=== PATIENT | female | born 1950 | race Caucasian/White ===

== ENCOUNTER 2016-12-27 16:07 | Inpatient (IN) | payer MEDICARE, MEDICAID ==
[~2016-12-27] VITALS: Ht 162.6 cm; Wt 104.3 kg
[~2016-12-27 16:07] MED LIST: BENA20TA2 PO; HYDR100T27 PO
--- NOTE | 2016-12-27 20:15 | NUR ---
NEW ADMISSION. Patient arrived and admitted to Rehab unit @ 2014 via [facility]. Patient is alert and verbally responsive. Able to make needs known. Patient on O2 2L via NC. No SOB. Patient denies any pain and discomfort at this time. No acute distress. Lung sounds auscultated bilaterally and are clear. Patient noted with discoloration on right lower extremity. No edema noted on lower extremities. Pedal pulses are palpable. Bowel sounds active in all four quadrants. No distention noted. Patient noted with IV site on left antecubital. No s/s of bleeding noted. No redness or infiltration. Clean and intact. Patient is continent. All needs attended to promptly. Call light within reach. Will continue to monitor. Addendum: 12/28/16 at 0111 by MAR CASTREJON RN 12/27/16 @ 2014 :Patient arrived from [facility] Addendum: 12/28/16 at 0427 by MAR CASTREJON RN 12/27/16 @ 2029: Called family and left message that patient has arrived in facility
--- NOTE | 2016-12-27 20:45 | NUR ---
Spoke with contract negotiation specialist , Dr. Tamez and made aware that new admission has arrived to Acute Rehab unit. Went over patient's current medication list from [facility] and per Riky ROMAN to continue all medications and will f/u with patient in AM.
[2016-12-27] MEDS ORDERED: BLOOD SUGAR DIAGNOSTIC 1 EACH STRIP VI SCH (21:00)
[2016-12-27] MEDS ORDERED: BLOO-360 IN (22:00)
[2016-12-27] MEDS ORDERED: ATOR40TA PO (22:00)
[2016-12-27] MEDS ORDERED: TRAM50TA PO (22:00)
[2016-12-27] MEDS ORDERED: INSU100V28 SQ (22:00)
[2016-12-27] MEDS ORDERED: INSU100I19 SQ (22:00)
[2016-12-27] MEDS ORDERED: GABA-534 PO (22:00)
[2016-12-27] MEDS ORDERED: ATORVASTATIN 40 MG TABLET PO SCH (22:15)
[2016-12-27] MEDS ORDERED: DEXTROSE 50% 50 ML DISP.SYRIN IV PRN (22:15)
[2016-12-27] MEDS: GABAPENTIN 300 MG CAPSULE PO SCH (22:44)
[2016-12-27] MEDS ORDERED: ATORVASTATIN 40 MG TABLET ONE (22:45)
[2016-12-27] MEDS ORDERED: GABAPENTIN 300 MG CAPSULE ONE (22:46)
[2016-12-27] MEDS: BLOOD SUGAR DIAGNOSTIC 1 EACH STRIP VI SCH (23:21)
--- NOTE | 2016-12-27 23:21 | NUR ---
Accu-Chek done. Patient with BS of 173. With orders for Regular Insulin per [facility] sliding scale. Per patient, verbalizes that she does not take any regular insulin and has not been taking it for awhile. Patient verbalizes that she only receives Levemir 15 units. Made patient aware that she has Regular Insulin ordered on top of the Levemir she is to receive she strongly verbalized that she does not take it and has not been. Levemir 15 unit given to patient as ordered. Will notify MD regarding patients med and will endorse to AM shift. Patient also with IV heplock on left antecubital, verbalize she wanted it taken out. Removed IV. No complications noted. Pressure applied. Tolerated well. No s/s of bleeding. Patient has no IV medications at this time. All needs attended to promptly. Call light within reach. Will continue to monitor.
[2016-12-27] MEDS: INSULIN DETEMIR 300 UNIT/3 ML CARTRIDGE SQ SCH (23:28)
[2016-12-27] MEDS ORDERED: INSULIN DETEMIR 300 UNIT/3 ML CARTRIDGE SQ ONE (23:32)
[2016-12-27] MEDS: INSULIN REGULAR, HUMAN 300 UNIT/3 ML VIAL SQ PRN (23:33)
[2016-12-28] MEDS ORDERED: APIX5TAB PO (04:00)
[2016-12-28] MEDS ORDERED: ASPI81TA31 PO (04:01)
[2016-12-28] MEDS ORDERED: BENA10TA2 PO (04:01)
[2016-12-28] MEDS ORDERED: CARV25TA PO (04:01)
[2016-12-28] MEDS ORDERED: DILT120T14 PO (04:01)
[2016-12-28] MEDS ORDERED: VENL150C2 PO (04:01)
[2016-12-28] MEDS ORDERED: MECL-102 PO (04:01)
[2016-12-28] MEDS ORDERED: GLIP10TA11 PO (04:01)
[2016-12-28] MEDS ORDERED: PANT40TA4 PO (04:01)
[2016-12-28] MEDS ORDERED: SULF1TAB48 PO (04:01)
[2016-12-28] MEDS ORDERED: HYDR-4076 PO (04:01)
[2016-12-28] MEDS ORDERED: FURO-152 PO (04:01)
[2016-12-28] MEDS ORDERED: MAGN400C PO (04:01)
[2016-12-28] MEDS: BLOOD SUGAR DIAGNOSTIC 1 EACH STRIP VI SCH ×4 (06:58→21:05)
--- NOTE | 2016-12-28 07:02 | NUR ---
Patient is awake and verbally responsive. Slept throughout the night. Denies any pain and discomfort at this time. No acute distress. No SOB. On O2 2L via NC at this time. Kept clean and dry. BS is 87. No insulin coverage needed. Will endorse to AM Shift. All needs attended to promptly. Call light within reach. Will continue to monitor.
--- NOTE | 2016-12-28 07:21 | NUR ---
Patient received from shift commander, resting comfortably in bed. No signs of acute distress noted, respirations even and unlabored. O2 sat WNL on RA, VS WNL. No other verbalized needs at this time. Safety and fall precautions maintained, call light within reach.
[2016-12-28 08:06] VITALS: BP 109/56
[2016-12-28] MEDS: TRAMADOL HCL 50 MG TABLET PO PRN ×2 (08:50→22:28)
[2016-12-28] MEDS: INSULIN REGULAR, HUMAN 300 UNIT/3 ML VIAL SQ PRN ×2 (13:09→17:54)
[2016-12-28 20:00] VITALS: BP 125/63
[2016-12-28] MEDS: ATORVASTATIN 40 MG TABLET PO SCH (20:26)
[2016-12-28] MEDS: GABAPENTIN 300 MG CAPSULE PO SCH (20:26)
[2016-12-28] MEDS: INSULIN DETEMIR 300 UNIT/3 ML CARTRIDGE SQ SCH (20:53)
[2016-12-28] MEDS ORDERED: OXYCODONE/APAP 5-325 MG TABLET PO PRN ×2 (23:15)
[2016-12-28] MEDS ORDERED: OXYCODONE/APAP 5-325 MG TABLET ONE (23:40)
[2016-12-29 06:49] LABS: BASOPHILS % (AUTO) 0.4 % (0.0-2.0); EOSINOPHILS # (AUTO) 0.1 K/uL (0.0-0.7); EOSINOPHILS % (AUTO) 1.3 % (0.0-7.0); HEMATOCRIT 31.5 % (37-47); LYMPHOCYTES # (AUTO) 1.3 K/UL (0.8-4.8); MEAN CORPUSCULAR HEMOGLOBIN 26.8 UUG (27.0-31.0); MEAN CORPUSCULAR HGB CONC 32 g/dL (32.0-37.0); MEAN CORPUSCULAR VOLUME 84.4 FL (81.0-99.0); MONOCYTES # (AUTO) 0.9 K/UL (0.1-1.30); MONOCYTES % (AUTO) 8.8 % (0.0-11.0); NEUTROPHILS # (AUTO) 8.4 K/UL (1.8-8.9); NEUTROPHILS % (AUTO) 77.5 % (38.5-71.5); PLATELET COUNT (AUTO) 195 K/UL (150-450); RED BLOOD CELL COUNT(AUTO) 3.73 MIL/UL (4.2-5.4); WHITE BLOOD COUNT (AUTO) 10.7 K/UL (4.0-11.2)
[2016-12-29 07:18] LABS: MAGNESIUM 2.4 mg/dL (1.8-2.4); PHOSPHOROUS 5.1 mg/dL (2.5-4.9); POTASSIUM 4.7 mmol/L (3.5-5.1)
[2016-12-29 07:28] LABS: CREATININE 1.4 mg/dL (0.6-1.3)
--- NOTE | 2016-12-29 07:45 | NUR ---
Received patient awake, up in bed, watching TV, verbally responsive, coherent, afebrile, not in any form of acute distress. She denies any pain or discomfort at this time. Environmental check for safety done. Call light placed within reach.
--- NOTE | 2016-12-29 07:59 | NUR ---
Patient awake in bed with no s/s of distress. No complaints of pain at this time. Tramadol given as ordered at 2230 with little relief. 2 tabs of Percocet administered as ordered at 2330. Patient slept well throughout the night afterwards. Kept clean and comfortable. Safety measures observed. Call light kept within reach. Frequent checks done. Endorsed accordingly.
[2016-12-29] MEDS: BLOOD SUGAR DIAGNOSTIC 1 EACH STRIP VI SCH ×4 (08:24→21:34)
[2016-12-29 08:29] VITALS: BP 109/61
--- NOTE | 2016-12-29 11:40 | NUR ---
Blood sugar checked 292 but patient refused to get her regular insulin per sliding scale despite explanation of benefits and risks. Patient remains alert, verbally responsive, coherent, afebrile, not in any form of acute distress. She denies any pain or discomfort at this time. Will continue to monitor.
[2016-12-29] MEDS: hydrALAZINE HCL 25 MG TABLET PO SCH ×2 (14:00→23:05)
[2016-12-29] MEDS ORDERED: MECLIZINE HCL 25 MG TABLET PO PRN (14:00)
[2016-12-29] MEDS ORDERED: INSULIN REGULAR, HUMAN 300 UNIT/3 ML VIAL SQ PRN (14:00)
[2016-12-29] MEDS ORDERED: TRAMADOL HCL 50 MG TABLET PO PRN (14:00)
[2016-12-29] MEDS: SULFAMETH/TRIMETH 800/160 MG TABLET PO SCH ×2 (15:51→21:21)
[2016-12-29] MEDS ORDERED: BLOOD SUGAR DIAGNOSTIC 1 EACH STRIP VI SCH (16:30)
[2016-12-29] MEDS: glipiZIDE 10 MG TABLET PO SCH (17:36)
[2016-12-29] MEDS: CARVEDILOL 25 MG TABLET PO SCH (17:38)
[2016-12-29] MEDS: INSULIN REGULAR, HUMAN 300 UNIT/3 ML VIAL SQ PRN ×2 (17:41→23:07)
[2016-12-29] MEDS: FUROSEMIDE 20 MG TABLET PO SCH (17:41)
[2016-12-29] MEDS: APIXABAN 5 MG TABLET PO SCH (17:41)
[2016-12-29] MEDS: MAGNESIUM OXIDE 400 MG TABLET PO SCH (17:42)
--- NOTE | 2016-12-29 19:20 | NUR ---
Received patient sitting up in bed. Alert and verbally responsive. Able to make needs known. Denies any pain and discomfort at this time. No acute distress. No SOB. On O2 2L via NC. Tolerating well. Discoloration still noted on right lower extremity. Handled gently. Kept clean and dry. All needs attended to promptly. Call light within reach. Will continue to monitor.
[2016-12-29 20:00] VITALS: BP 120/63
[2016-12-29] MEDS ORDERED: GABAPENTIN 300 MG CAPSULE PO SCH (21:00)
[2016-12-29] MEDS ORDERED: ATORVASTATIN 40 MG TABLET PO SCH (21:00)
[2016-12-29] MEDS ORDERED: INSULIN DETEMIR 300 UNIT/3 ML CARTRIDGE SQ SCH (21:00)
[2016-12-29] MEDS: ATORVASTATIN 40 MG TABLET PO SCH (21:20)
[2016-12-29] MEDS: GABAPENTIN 300 MG CAPSULE PO SCH (21:21)
[2016-12-29] MEDS: INSULIN DETEMIR 300 UNIT/3 ML CARTRIDGE SQ SCH (21:32)
--- NOTE | 2016-12-29 21:34 | NUR ---
Accu-check done. Blood sugar is 281, but patient refused regular insulin. Explained risks and benefits, but patient still refused. Patient has Levemir 15 units ordered Q HS and verbalized she only wanted to take her Levemir. Medication given as ordered. Patient in no acute distress at this time. no s/s of hyperglycemia noted. All needs attended to promptly. Call light within reach. Will continue to monitor.
--- NOTE | 2016-12-29 22:05 | NUR ---
Dr. Reardon in facility and evaluated patient for Cardiac consult. No new orders noted at this time.
[2016-12-29] MEDS ORDERED: HYDROCODONE/APAP 5-325MG TABLET PO PRN ×2 (23:30)
[2016-12-30] MEDS: hydrALAZINE HCL 25 MG TABLET PO SCH ×3 (06:14→22:00)
[2016-12-30] MEDS: PANTOPRAZOLE SODIUM 40 MG TABLET.DR PO SCH (06:14)
[2016-12-30] MEDS: BLOOD SUGAR DIAGNOSTIC 1 EACH STRIP VI SCH ×4 (06:22→21:19)
--- NOTE | 2016-12-30 06:22 | NUR ---
Patient is awake and verbally responsive. Slept comfortably throughout the night. Denies any pain and discomfort. No acute distress. No SOB. BS checked 100. No insulin coverage needed. 7am medications given. All needs attended to promptly. Call light within reach. Will continue to monitor.
--- NOTE | 2016-12-30 07:30 | NUR ---
Received patient awake in bed, alert, verbally responsive, able to make needs known, not in any form of acute distress. She denies any pain or discomfort at this time. Environmental safety check done. Call light placed within reach.
[2016-12-30] MEDS: CARVEDILOL 25 MG TABLET PO SCH ×2 (08:00→17:38)
[2016-12-30 08:18] LABS: CREATININE 1.2 mg/dL (0.6-1.3); MAGNESIUM 2.5 mg/dL (1.8-2.4); POTASSIUM 4.9 mmol/L (3.5-5.1)
[2016-12-30] MEDS: glipiZIDE 10 MG TABLET PO SCH ×2 (08:33→17:14)
[2016-12-30] MEDS: SULFAMETH/TRIMETH 800/160 MG TABLET PO SCH ×2 (08:34→21:18)
[2016-12-30] MEDS: VENLAFAXINE XR 75 MG CAP.SR.24H PO SCH (08:34)
[2016-12-30] MEDS: FUROSEMIDE 20 MG TABLET PO SCH ×2 (08:35→17:15)
[2016-12-30] MEDS: MAGNESIUM OXIDE 400 MG TABLET PO SCH ×2 (08:35→17:15)
[2016-12-30] MEDS: ASPIRIN 81 MG TAB.CHEW PO SCH (08:40)
[2016-12-30] MEDS: APIXABAN 5 MG TABLET PO SCH ×2 (08:42→17:17)
[2016-12-30] MEDS ORDERED: BENAZEPRIL HCL 10 MG TABLET PO SCH (09:00)
[2016-12-30] MEDS ORDERED: VENLAFAXINE XR 150 MG CAP.SR.24H PO SCH (09:00)
[2016-12-30] MEDS: DILTIAZEM HCL CD 120 MG CAP.SR.24H PO SCH (09:00)
[2016-12-30 10:51] VITALS: BP 102/60
[2016-12-30] MEDS: INSULIN REGULAR, HUMAN 300 UNIT/3 ML VIAL SQ PRN ×3 (12:06→21:44)
--- NOTE | 2016-12-30 16:11 | NUR ---
Gmat Instructor: SW met with pt at bedside to assess needs and provided support. Per pt, she was admitted due to congestive heart failure. Pt did appear depressed when discussing her medical hx. Per pt, she is experiencing some family related stressors, such as having to plan to move to another place. Per pt, she lives with her son however she will need to move out "eventually." Pt reported she lost her home in 2008 and stopped working that year. She reported she is unable to ambulate and is in need of assistance when returning home. Per pt, she has applied for [employer] and is waiting for a response. Additionally, pt reported she applied for [employer] housing as well. SW provided supportive counseling and emotional support. SW will provide community resources and heart disease support group referrals. SW will continue to remain available as needed.
[2016-12-30 20:27] VITALS: BP 128/61
[2016-12-30] MEDS: GABAPENTIN 300 MG CAPSULE PO SCH (21:18)
[2016-12-30] MEDS: INSULIN DETEMIR 300 UNIT/3 ML CARTRIDGE SQ SCH (21:24)
[2016-12-30] MEDS: ATORVASTATIN 40 MG TABLET PO SCH (21:31)
[2016-12-30] MEDS ORDERED: ATORVASTATIN 20 MG TABLET ONE (21:38)
--- NOTE | 2016-12-30 22:14 | NUR ---
Patient had lipitor 40mg due at 2100, medication not available in [facility], medication override was done and 2 tabs for lipitor 20mg were taken and administered for a total dose of 40mg as ordered Addendum: 12/30/16 at 2220 by KENTRELL WASHINGTON RN Also blood sugar was checked with reading at 193, patient refused to get coverage for sliding scale. Stated " My sugar will drop too much because I already had my medication", explained the importance of having controlled glucose levels but the patient still refused.
[2016-12-31] MEDS: glipiZIDE 10 MG TABLET PO SCH ×2 (06:38→17:30)
[2016-12-31] MEDS: PANTOPRAZOLE SODIUM 40 MG TABLET.DR PO SCH (06:38)
[2016-12-31] MEDS: hydrALAZINE HCL 25 MG TABLET PO SCH ×3 (06:38→21:17)
[2016-12-31] MEDS: BLOOD SUGAR DIAGNOSTIC 1 EACH STRIP VI SCH ×4 (06:40→21:18)
--- NOTE | 2016-12-31 06:43 | NUR ---
Patient slept well throughout the night, had no episodes of pain or discomfort. No respiratory distress noted. Patient has call light within reach, will continue to monitor
--- NOTE | 2016-12-31 07:30 | NUR ---
RECEIVED PATIENT IN BED AWAKE ALERT AND ORIENTED DENIES PAIN OR DISCOMFORTS AT THIS TIME.REMAIN ON O2 AT 2L/M BY NASAL CANULA WITH NO SHORTNESS OF BREATH AT THIS TIME.NO S/S OF HYPO/HYPERGLYCEMIC REACTIONS AT THIS TIME.CALL LIGHT IS WITHIN EASY REACH MADE COMFORTABLE AND WILL OBSERVE.
[2016-12-31 08:52] VITALS: BP 129/62
[2016-12-31] MEDS: SULFAMETH/TRIMETH 800/160 MG TABLET PO SCH ×2 (09:15→21:18)
[2016-12-31] MEDS: MAGNESIUM OXIDE 400 MG TABLET PO SCH ×2 (09:16→17:30)
[2016-12-31] MEDS: ASPIRIN 81 MG TAB.CHEW PO SCH (09:16)
[2016-12-31] MEDS: FUROSEMIDE 20 MG TABLET PO SCH ×2 (09:16→17:30)
[2016-12-31] MEDS: CARVEDILOL 25 MG TABLET PO SCH ×2 (09:16→17:31)
[2016-12-31] MEDS: VENLAFAXINE XR 75 MG CAP.SR.24H PO SCH (09:16)
[2016-12-31] MEDS: DILTIAZEM HCL CD 120 MG CAP.SR.24H PO SCH (09:17)
[2016-12-31] MEDS: APIXABAN 5 MG TABLET PO SCH ×2 (09:18→17:30)
[2016-12-31] MEDS: INSULIN REGULAR, HUMAN 300 UNIT/3 ML VIAL SQ PRN ×2 (12:21→17:36)
--- NOTE | 2016-12-31 14:13 | NUR ---
IDT MEETING 12/31/16
[2016-12-31 16:19] VITALS: BP 113/69
--- NOTE | 2016-12-31 18:00 | NUR ---
PATIENT IS 96% ON ROOM AIR O2 WILL BE USED ON A PRN BASIS AT THIS TIME.
[2016-12-31 20:02] VITALS: BP 112/52
[2016-12-31] MEDS: GABAPENTIN 300 MG CAPSULE PO SCH (21:17)
[2016-12-31] MEDS: INSULIN DETEMIR 300 UNIT/3 ML CARTRIDGE SQ SCH (21:19)
[2016-12-31] MEDS: ATORVASTATIN 40 MG TABLET PO SCH (21:21)
--- NOTE | 2016-12-31 21:30 | NUR ---
Patient alert and oriented and verbally able to let needs known. Patient refused sliding scale coverage for the HS dose. Did ok the long acting insulin. Also 2 20 mg doses of Lipitor were taken out of the pyxis because the 40 mg dose is out .
[2016-12-31] MEDS ORDERED: ATORVASTATIN 20 MG TABLET ONE (21:32)
[2017-01-01] MEDS: hydrALAZINE HCL 25 MG TABLET PO SCH ×3 (06:00→21:12)
[2017-01-01] MEDS: BLOOD SUGAR DIAGNOSTIC 1 EACH STRIP VI SCH ×4 (06:27→21:01)
[2017-01-01] MEDS: PANTOPRAZOLE SODIUM 40 MG TABLET.DR PO SCH (06:33)
--- NOTE | 2017-01-01 06:37 | NUR ---
Patient alert and oriented and verbally able to let needs known. Slept well throughout the night, had no complains of pain or discomfort, no signs of SOB pulse o2 >90% on room air throughout the night. B/P meds not given due to SBP reading 112/43. Patient also prefers to take glucatrol later on when she has her food tray since her blood sugar reading this morning was 75. Will relay to the morning nurse. Patient does have call light within reach, all needs attended to.
--- NOTE | 2017-01-01 07:20 | NUR ---
Patient received from night court magistrate, resting comfortably in bed. No signs of acute distress noted, respirations even and unlabored. VS WNL, no complaints of pain, no other verbalized needs at this time. Safety precautions and fall precautions maintained, call light within reach.
[2017-01-01 08:00] VITALS: BP 116/66
[2017-01-01] MEDS: DILTIAZEM HCL CD 120 MG CAP.SR.24H PO SCH (09:05)
[2017-01-01] MEDS: ASPIRIN 81 MG TAB.CHEW PO SCH (09:06)
[2017-01-01] MEDS: CARVEDILOL 25 MG TABLET PO SCH ×2 (09:06→17:47)
[2017-01-01] MEDS: SULFAMETH/TRIMETH 800/160 MG TABLET PO SCH ×2 (09:07→21:04)
[2017-01-01] MEDS: MAGNESIUM OXIDE 400 MG TABLET PO SCH ×2 (09:07→17:42)
[2017-01-01] MEDS: FUROSEMIDE 20 MG TABLET PO SCH ×2 (09:07→17:42)
[2017-01-01] MEDS: glipiZIDE 10 MG TABLET PO SCH ×3 (09:07→17:42)
[2017-01-01] MEDS: VENLAFAXINE XR 75 MG CAP.SR.24H PO SCH (09:09)
[2017-01-01] MEDS: APIXABAN 5 MG TABLET PO SCH ×2 (09:10→17:50)
[2017-01-01] MEDS: INSULIN REGULAR, HUMAN 300 UNIT/3 ML VIAL SQ PRN ×2 (12:21→17:47)
[2017-01-01 20:06] VITALS: BP 128/60
--- NOTE | 2017-01-01 21:00 | NUR ---
NSG: Patient alert and oriented,patient verbally able to needs known. compliant with meds and insulin slyding scale. hs snack given after insulin given.continue plan of care.
[2017-01-01] MEDS: GABAPENTIN 300 MG CAPSULE PO SCH (21:05)
[2017-01-01] MEDS: ATORVASTATIN 40 MG TABLET PO SCH (21:05)
[2017-01-01] MEDS: INSULIN DETEMIR 300 UNIT/3 ML CARTRIDGE SQ SCH (21:08)
[2017-01-02] MEDS: PANTOPRAZOLE SODIUM 40 MG TABLET.DR PO SCH (06:20)
[2017-01-02] MEDS: hydrALAZINE HCL 25 MG TABLET PO SCH ×3 (06:20→21:01)
[2017-01-02 06:53] LABS: BASOPHILS % (AUTO) 0.4 % (0.0-2.0); EOSINOPHILS # (AUTO) 0.4 K/uL (0.0-0.7); EOSINOPHILS % (AUTO) 3.7 % (0.0-7.0); HEMATOCRIT 33.3 % (37-47); HEMOGLOBIN 10.6 G/DL (12.0-16.0); LYMPHOCYTES # (AUTO) 1.3 K/UL (0.8-4.8); LYMPHOCYTES % (AUTO) 13.5 % (20.5-51.5); MEAN CORPUSCULAR HEMOGLOBIN 26.6 UUG (27.0-31.0); MEAN CORPUSCULAR HGB CONC 32 g/dL (32.0-37.0); MONOCYTES # (AUTO) 0.7 K/UL (0.1-1.30); MONOCYTES % (AUTO) 7.4 % (0.0-11.0); NEUTROPHILS # (AUTO) 7.5 K/UL (1.8-8.9); PLATELET COUNT (AUTO) 314 K/UL (150-450); RED BLOOD CELL COUNT(AUTO) 4.01 MIL/UL (4.2-5.4); WHITE BLOOD COUNT (AUTO) 9.9 K/UL (4.0-11.2)
[2017-01-02] MEDS: BLOOD SUGAR DIAGNOSTIC 1 EACH STRIP VI SCH ×4 (06:53→20:48)
--- NOTE | 2017-01-02 07:01 | NUR ---
NSG: Patient remain calm and cooperative with care and meds.Patient slept well through the night, had no episodes of pain or discomfort. No respiratory distress noted. call light within reach, will continue to monitor. continue plan of care.
[2017-01-02 07:22] LABS: THYROID STIMULATING HORMONE 2.16 mIU/mL (0.358-3.740)
[2017-01-02 07:55] LABS: BILIRUBIN,TOTAL 0.3 mg/dL (0.2-1.0); MAGNESIUM 2.1 mg/dL (1.8-2.4); PHOSPHOROUS 4.7 mg/dL (2.5-4.9); POTASSIUM 5.1 mmol/L (3.5-5.1); TOTAL PROTEIN, SERUM 7.3 g/dL (6.4-8.2)
[2017-01-02 07:58] LABS: CREATININE 1.7 mg/dL (0.6-1.3)
[2017-01-02 08:00] VITALS: BP_SYST 114; BP_SYST 138; BP_DIAS 53; BP_DIAS 74
[2017-01-02] MEDS: CARVEDILOL 25 MG TABLET PO SCH ×2 (08:15→17:34)
[2017-01-02] MEDS: glipiZIDE 10 MG TABLET PO SCH ×2 (08:16→17:28)
[2017-01-02] MEDS: MAGNESIUM OXIDE 400 MG TABLET PO SCH ×2 (08:17→17:28)
[2017-01-02] MEDS: FUROSEMIDE 20 MG TABLET PO SCH (08:17)
[2017-01-02] MEDS: ASPIRIN 81 MG TAB.CHEW PO SCH (08:17)
[2017-01-02] MEDS: VENLAFAXINE XR 75 MG CAP.SR.24H PO SCH (08:17)
[2017-01-02] MEDS: SULFAMETH/TRIMETH 800/160 MG TABLET PO SCH ×2 (08:17→20:43)
[2017-01-02] MEDS: DILTIAZEM HCL CD 120 MG CAP.SR.24H PO SCH (08:18)
[2017-01-02] MEDS: APIXABAN 5 MG TABLET PO SCH ×2 (10:48→17:28)
[2017-01-02] MEDS: INSULIN REGULAR, HUMAN 300 UNIT/3 ML VIAL SQ PRN (12:39)
--- NOTE | 2017-01-02 19:30 | NUR ---
Patient resting in her bed with no s/s of distress. Demonstrated a pleasant disposition. Call light within reach. Will continue to monitor.
[2017-01-02 20:25] VITALS: BP 143/61
[2017-01-02] MEDS: ATORVASTATIN 40 MG TABLET PO SCH (20:43)
[2017-01-02] MEDS: GABAPENTIN 300 MG CAPSULE PO SCH (20:43)
[2017-01-02] MEDS: INSULIN DETEMIR 300 UNIT/3 ML CARTRIDGE SQ SCH (20:56)
[2017-01-02] MEDS: diphenhydrAMINE 50 MG CAPSULE PO PRN (22:16)
[2017-01-02] MEDS ORDERED: diphenhydrAMINE 50 MG CAPSULE ONE (22:26)
[2017-01-03] MEDS: hydrALAZINE HCL 25 MG TABLET PO SCH ×3 (06:23→21:07)
[2017-01-03] MEDS: BLOOD SUGAR DIAGNOSTIC 1 EACH STRIP VI SCH ×4 (06:55→22:03)
--- NOTE | 2017-01-03 07:21 | NUR ---
Patient resting on her bed with no s/s of distress. Respirations even and unlabored. Denies pain at this time. Call light kept within reach. Frequent checks done. Due meds given. BS taken this AM: 59. Given orange juice. Rechecked after 15 mins: 77. VS WNL. Kept clean and comfortable. Needs attended. Endorsed accordingly.
--- NOTE | 2017-01-03 07:28 | NUR ---
Regular insulin at HS refused, Levemir HS given as ordered.
[2017-01-03 08:00] VITALS: BP 116/59
--- NOTE | 2017-01-03 08:00 | NUR ---
RECEIVED PATIENT AWAKE IN BED. NO S/S OF DISTRESS NOTED. NO COMPLAINTS OF PAIN OR DISCOMFORT AT THIS TIME. BS RE CHECKED AT 70. OFFERED ORANGE JUICE AND ENCOURAGED TO FINISH BREAKFAST. WILL CONTINUE TO MONITOR
[2017-01-03] MEDS: PANTOPRAZOLE SODIUM 40 MG TABLET.DR PO SCH (08:23)
[2017-01-03] MEDS: DILTIAZEM HCL CD 120 MG CAP.SR.24H PO SCH (08:24)
[2017-01-03] MEDS: SULFAMETH/TRIMETH 800/160 MG TABLET PO SCH ×2 (08:25→20:55)
[2017-01-03] MEDS: CARVEDILOL 25 MG TABLET PO SCH ×2 (08:25→18:00)
[2017-01-03] MEDS: MAGNESIUM OXIDE 400 MG TABLET PO SCH ×2 (08:25→16:58)
[2017-01-03] MEDS: VENLAFAXINE XR 75 MG CAP.SR.24H PO SCH (08:34)
[2017-01-03] MEDS: APIXABAN 5 MG TABLET PO SCH ×2 (08:34→17:19)
[2017-01-03] MEDS: glipiZIDE 10 MG TABLET PO SCH ×2 (08:40→16:58)
[2017-01-03] MEDS: INSULIN REGULAR, HUMAN 300 UNIT/3 ML VIAL SQ PRN ×2 (12:12→17:19)
--- NOTE | 2017-01-03 18:03 | NUR ---
PATIENT TOLERATED OT AND PT WELL. EATING DINNER AT THIS TIME. TOLERATED DIET WELL. NO COMPLAINTS OF PAIN. BP AT 100/52, AZ AT 52. WITHHELD CARVEDILOL.
--- NOTE | 2017-01-03 19:30 | NUR ---
Received patient awake, resting in her bed. Verbalized absence of pain at this time. Respirations even and unlabored. Call light within reach. Will continue to monitor.
[2017-01-03 20:00] VITALS: BP 117/61
[2017-01-03] MEDS: ATORVASTATIN 40 MG TABLET PO SCH (20:55)
[2017-01-03] MEDS: GABAPENTIN 300 MG CAPSULE PO SCH (20:55)
[2017-01-03] MEDS: INSULIN DETEMIR 300 UNIT/3 ML CARTRIDGE SQ SCH (21:07)
[2017-01-03] MEDS: diphenhydrAMINE 50 MG CAPSULE PO PRN (22:04)
--- NOTE | 2017-01-04 03:40 | NUR ---
Patient verbalized not feeling well. Comfort measures given, BP taken: 147/69. Damien crackers and orange juice given as patient reported feeling hungry. Blood sugar checked after 15 minutes. BS 106. Reported feeling "a lot better" after snacks and adjusting room temperature. Encouraged to take small, frequent snacks especially at midnight to maintain BS within normal range. Patient verbalized understanding and agreement. Went back to sleeping soundly immediately after interventions. Will continue to monitor.
[2017-01-04] MEDS: hydrALAZINE HCL 25 MG TABLET PO SCH ×3 (06:24→21:29)
[2017-01-04] MEDS: BLOOD SUGAR DIAGNOSTIC 1 EACH STRIP VI SCH ×4 (06:24→21:28)
[2017-01-04] MEDS: PANTOPRAZOLE SODIUM 40 MG TABLET.DR PO SCH (06:24)
--- NOTE | 2017-01-04 06:30 | NUR ---
BS taken: 121. Reminded to take snacks every 2 hrs to help keep BS stable and within normal range. Patient verbalized understanding. Denies pain or discomfort at this time. Went back to sleep after taking AM meds. Respirations even and unlabored. Due meds given. Frequent checks done. Needs attended. Kept clean and comfortable. Supervised during ambulation. Endorsed accordingly.
[2017-01-04 06:55] LABS: BASOPHILS % (AUTO) 0.4 % (0.0-2.0); EOSINOPHILS # (AUTO) 0.4 K/uL (0.0-0.7); EOSINOPHILS % (AUTO) 3.6 % (0.0-7.0); HEMATOCRIT 33.2 % (37-47); HEMOGLOBIN 10.6 G/DL (12.0-16.0); LYMPHOCYTES # (AUTO) 1.2 K/UL (0.8-4.8); LYMPHOCYTES % (AUTO) 11.8 % (20.5-51.5); MEAN CORPUSCULAR HEMOGLOBIN 26.7 UUG (27.0-31.0); MEAN CORPUSCULAR HGB CONC 32 g/dL (32.0-37.0); MEAN CORPUSCULAR VOLUME 83.5 FL (81.0-99.0); MONOCYTES # (AUTO) 0.7 K/UL (0.1-1.30); MONOCYTES % (AUTO) 6.7 % (0.0-11.0); NEUTROPHILS # (AUTO) 8.2 K/UL (1.8-8.9); NEUTROPHILS % (AUTO) 77.5 % (38.5-71.5); PLATELET COUNT (AUTO) 303 K/UL (150-450); RED BLOOD CELL COUNT(AUTO) 3.98 MIL/UL (4.2-5.4); WHITE BLOOD COUNT (AUTO) 10.5 K/UL (4.0-11.2)
[2017-01-04 07:11] LABS: BILIRUBIN,TOTAL 0.4 mg/dL (0.2-1.0); MAGNESIUM 2.1 mg/dL (1.8-2.4); POTASSIUM 5.4 mmol/L (3.5-5.1); TOTAL PROTEIN, SERUM 7.1 g/dL (6.4-8.2)
[2017-01-04 07:15] LABS: CREATININE 1.8 mg/dL (0.6-1.3)
[2017-01-04] MEDS: glipiZIDE 10 MG TABLET PO SCH ×2 (08:08→17:05)
[2017-01-04] MEDS: CARVEDILOL 25 MG TABLET PO SCH ×2 (08:09→17:08)
[2017-01-04] MEDS: SULFAMETH/TRIMETH 800/160 MG TABLET PO SCH ×2 (08:10→21:24)
[2017-01-04] MEDS: APIXABAN 5 MG TABLET PO SCH ×2 (08:12→17:07)
[2017-01-04] MEDS: MAGNESIUM OXIDE 400 MG TABLET PO SCH ×2 (08:12→17:07)
[2017-01-04] MEDS: VENLAFAXINE XR 75 MG CAP.SR.24H PO SCH (08:12)
[2017-01-04] MEDS: DILTIAZEM HCL CD 120 MG CAP.SR.24H PO SCH (08:12)
--- NOTE | 2017-01-04 08:25 | NUR ---
RECEIVED PATIENT AWAKE IN BED. NO COMPLAINTS OF PAIN OR DISCOMFORT AT THIS TIME. NO S/S OF DISTRESS. CALL LIGHT WITHIN REACH. SUPERVISED AMBULATION. ENSURED SAFETY
[2017-01-04] MEDS: INSULIN REGULAR, HUMAN 300 UNIT/3 ML VIAL SQ PRN (12:29)
--- NOTE | 2017-01-04 14:00 | NUR ---
BP AT 100/8. AL AT 62. WITHHELD HYDRALAZINE. NO S/S OF DISTRESS. NO COMPLAINTS OF DIZZINESS OR OTHER DISCOMFORTS. PATIENT SITTING AT CHAIR COMFORTABLY. ATTENDED TO NEEDS PROMPTLY. O2 SAT AT 95%. REFUSED O2 AT THIS TIME.
[2017-01-04 20:41] VITALS: BP 129/64
[2017-01-04] MEDS: GABAPENTIN 300 MG CAPSULE PO SCH (21:24)
[2017-01-04] MEDS: ATORVASTATIN 40 MG TABLET PO SCH (21:24)
[2017-01-04] MEDS: INSULIN DETEMIR 300 UNIT/3 ML CARTRIDGE SQ SCH (21:32)
--- NOTE | 2017-01-05 05:03 | NUR ---
Went in for hourly rounds and patient was awake and alert, asked me to check blood surgar levels because she was sweaty and and didn't feel right. Blood sugar was checked with readings at 57. Rozel juice was given and onesimollo. Will recheck blood sugar in 15-30 mins. Patient does have call light within reach, will continue to monitor.
--- NOTE | 2017-01-05 05:33 | NUR ---
Patient's blood sugar was rechecked with readings at 128, she is alert and oriented and states that she's beginning to feel better, I informed her that her blood sugar would still be rechecked at 0630 as scheduled.
[2017-01-05] MEDS: PANTOPRAZOLE SODIUM 40 MG TABLET.DR PO SCH (06:36)
[2017-01-05] MEDS: hydrALAZINE HCL 25 MG TABLET PO SCH ×3 (06:36→21:03)
[2017-01-05] MEDS: BLOOD SUGAR DIAGNOSTIC 1 EACH STRIP VI SCH ×4 (06:38→21:03)
--- NOTE | 2017-01-05 07:15 | NUR ---
Patient's blood sugar rechecked with readings at 110, patient is alert and oriented and verbally able to let needs known. Denies any pain or discomfort at this time, has call light within reach, all needs attended to.
[2017-01-05 07:18] VITALS: BP 126/61
[2017-01-05 07:35] LABS: BASOPHILS # (AUTO) 0.1 K/uL (0.0-8.0); BASOPHILS % (AUTO) 0.5 % (0.0-2.0); EOSINOPHILS # (AUTO) 0.5 K/uL (0.0-0.7); EOSINOPHILS % (AUTO) 4.4 % (0.0-7.0); HEMATOCRIT 32.5 % (37-47); HEMOGLOBIN 10.7 G/DL (12.0-16.0); LYMPHOCYTES # (AUTO) 1.5 K/UL (0.8-4.8); LYMPHOCYTES % (AUTO) 13.5 % (20.5-51.5); MEAN CORPUSCULAR HEMOGLOBIN 27.6 UUG (27.0-31.0); MEAN CORPUSCULAR HGB CONC 33 g/dL (32.0-37.0); MEAN CORPUSCULAR VOLUME 83.8 FL (81.0-99.0); MONOCYTES # (AUTO) 0.6 K/UL (0.1-1.30); MONOCYTES % (AUTO) 5.8 % (0.0-11.0); NEUTROPHILS # (AUTO) 8.1 K/UL (1.8-8.9); NEUTROPHILS % (AUTO) 75.8 % (38.5-71.5); PLATELET COUNT (AUTO) 284 K/UL (150-450); RED BLOOD CELL COUNT(AUTO) 3.88 MIL/UL (4.2-5.4); WHITE BLOOD COUNT (AUTO) 10.8 K/UL (4.0-11.2)
[2017-01-05 07:51] LABS: BILIRUBIN,TOTAL 0.5 mg/dL (0.2-1.0); MAGNESIUM 1.9 mg/dL (1.8-2.4); PHOSPHOROUS 4.5 mg/dL (2.5-4.9); POTASSIUM 5.2 mmol/L (3.5-5.1)
[2017-01-05 07:53] LABS: CREATININE 1.7 mg/dL (0.6-1.3)
[2017-01-05 08:10] LABS: TOTAL PROTEIN, SERUM 6.8 g/dL (6.4-8.2)
[2017-01-05] MEDS: glipiZIDE 10 MG TABLET PO SCH ×2 (09:01→17:15)
[2017-01-05] MEDS: VENLAFAXINE XR 75 MG CAP.SR.24H PO SCH (09:01)
[2017-01-05] MEDS: CARVEDILOL 25 MG TABLET PO SCH ×2 (09:01→17:38)
[2017-01-05] MEDS: MAGNESIUM OXIDE 400 MG TABLET PO SCH ×2 (09:01→17:16)
[2017-01-05] MEDS: DILTIAZEM HCL CD 120 MG CAP.SR.24H PO SCH (09:02)
[2017-01-05] MEDS: APIXABAN 5 MG TABLET PO SCH ×2 (09:06→17:17)
--- NOTE | 2017-01-05 19:30 | NUR ---
Received patient awake in her bed. Respirations even and unlabored. Verbalized absence of pain at this time. Will continue to monitor.
--- NOTE | 2017-01-05 19:33 | NUR ---
pt shows no signs of acute distress throughout shift. pt refused insulin for the morning and night. pt took bp meds. pt assisted to bathroom. will continue to monitor complications .
[2017-01-05 20:10] VITALS: BP 118/66
[2017-01-05] MEDS: ATORVASTATIN 40 MG TABLET PO SCH (21:01)
[2017-01-05] MEDS: GABAPENTIN 300 MG CAPSULE PO SCH (21:01)
[2017-01-05] MEDS: INSULIN DETEMIR 300 UNIT/3 ML CARTRIDGE SQ SCH (21:10)
[2017-01-05] MEDS: diphenhydrAMINE 50 MG CAPSULE PO PRN (22:22)
[2017-01-06] MEDS: BLOOD SUGAR DIAGNOSTIC 1 EACH STRIP VI SCH ×4 (06:55→20:37)
[2017-01-06] MEDS: hydrALAZINE HCL 25 MG TABLET PO SCH ×3 (06:56→21:41)
[2017-01-06] MEDS: PANTOPRAZOLE SODIUM 40 MG TABLET.DR PO SCH (07:00)
[2017-01-06] MEDS: DILTIAZEM HCL CD 120 MG CAP.SR.24H PO SCH (08:06)
[2017-01-06] MEDS: APIXABAN 5 MG TABLET PO SCH ×2 (08:06→17:37)
[2017-01-06] MEDS: CARVEDILOL 25 MG TABLET PO SCH ×2 (08:06→17:40)
[2017-01-06] MEDS: MAGNESIUM OXIDE 400 MG TABLET PO SCH ×2 (08:07→17:37)
[2017-01-06] MEDS: glipiZIDE 10 MG TABLET PO SCH ×2 (08:07→17:37)
[2017-01-06] MEDS: VENLAFAXINE XR 75 MG CAP.SR.24H PO SCH (08:07)
--- NOTE | 2017-01-06 08:13 | NUR ---
Patient awake, resting on bed with no s/s of distress. No complaints of pain during shift. VS and BS monitored, WNL. Due meds given. Needs attended. Kept clean and comfortable. Call light kept within reach. Endorsed accordingly.
[2017-01-06 11:15] VITALS: BP 132/75
[2017-01-06 20:00] VITALS: BP 133/76
--- NOTE | 2017-01-06 20:00 | NUR ---
PATIENT AWAKE, SITTING UP IN BED. A/O X4. VERY PLEASANT WHEN APPROACHED. DENIES ANY PAIN OR DISCOMFORT. NO RESP. DISTRESS NOTED. VSS. CALL LIGHT IN REACH. ALL NEEDS ATTENDED. WILL CONTINUE TO MONITOR.
[2017-01-06] MEDS: GABAPENTIN 300 MG CAPSULE PO SCH (20:34)
[2017-01-06] MEDS: ATORVASTATIN 40 MG TABLET PO SCH (20:34)
[2017-01-06] MEDS: INSULIN DETEMIR 300 UNIT/3 ML CARTRIDGE SQ SCH (20:39)
[2017-01-06] MEDS: INSULIN REGULAR, HUMAN 300 UNIT/3 ML VIAL SQ PRN (20:40)
[2017-01-07] MEDS: diphenhydrAMINE 50 MG CAPSULE PO PRN ×2 (00:08→22:47)
[2017-01-07] MEDS: hydrALAZINE HCL 25 MG TABLET PO SCH ×3 (06:00→21:16)
[2017-01-07] MEDS: BLOOD SUGAR DIAGNOSTIC 1 EACH STRIP VI SCH ×5 (06:15→21:18)
--- NOTE | 2017-01-07 06:15 | NUR ---
PATIENT AWAKE IN BED. REFUSED HYDRALAZINE 25MG PO, BP 117/59. PATIENTS BLOOD SUGAR 61. PATIENT GIVEN ORANGE JUICE. ASYMPTOMATIC. DENIES PAIN. SLEPT WELL. WILL RECHECK BS. ALL NEEDS ATTENDED.
[2017-01-07] MEDS: PANTOPRAZOLE SODIUM 40 MG TABLET.DR PO SCH (06:22)
[2017-01-07 07:00] LABS: BASOPHILS # (AUTO) 0.1 K/uL (0.0-8.0); BASOPHILS % (AUTO) 0.7 % (0.0-2.0); EOSINOPHILS # (AUTO) 0.4 K/uL (0.0-0.7); EOSINOPHILS % (AUTO) 4.2 % (0.0-7.0); HEMATOCRIT 33.9 % (37-47); LYMPHOCYTES # (AUTO) 1.6 K/UL (0.8-4.8); LYMPHOCYTES % (AUTO) 16.5 % (20.5-51.5); MEAN CORPUSCULAR HEMOGLOBIN 27.2 UUG (27.0-31.0); MEAN CORPUSCULAR HGB CONC 32 g/dL (32.0-37.0); MEAN CORPUSCULAR VOLUME 84.2 FL (81.0-99.0); MONOCYTES # (AUTO) 0.8 K/UL (0.1-1.30); MONOCYTES % (AUTO) 8.3 % (0.0-11.0); NEUTROPHILS # (AUTO) 6.7 K/UL (1.8-8.9); NEUTROPHILS % (AUTO) 70.3 % (38.5-71.5); PLATELET COUNT (AUTO) 296 K/UL (150-450); RED BLOOD CELL COUNT(AUTO) 4.03 MIL/UL (4.2-5.4); WHITE BLOOD COUNT (AUTO) 9.6 K/UL (4.0-11.2)
--- NOTE | 2017-01-07 07:00 | NUR ---
RECHECKED PATIENTS BLOOD SUGAR 83. WILL CONTINUE TO MONITOR.
[2017-01-07 07:13] LABS: CREATININE 1.6 mg/dL (0.6-1.3); POTASSIUM 5.1 mmol/L (3.5-5.1)
[2017-01-07 07:14] LABS: BILIRUBIN,TOTAL 0.4 mg/dL (0.2-1.0); MAGNESIUM 2.1 mg/dL (1.8-2.4)
[2017-01-07 08:00] VITALS: BP 121/52
[2017-01-07] MEDS: MAGNESIUM OXIDE 400 MG TABLET PO SCH ×2 (09:05→17:49)
[2017-01-07] MEDS: APIXABAN 5 MG TABLET PO SCH ×2 (09:05→17:49)
[2017-01-07] MEDS: DILTIAZEM HCL CD 120 MG CAP.SR.24H PO SCH (09:05)
[2017-01-07] MEDS: CARVEDILOL 25 MG TABLET PO SCH ×2 (09:06→17:53)
[2017-01-07] MEDS: glipiZIDE 10 MG TABLET PO SCH ×2 (09:15→17:49)
[2017-01-07] MEDS: VENLAFAXINE XR 75 MG CAP.SR.24H PO SCH (11:33)
[2017-01-07] MEDS: INSULIN REGULAR, HUMAN 300 UNIT/3 ML VIAL SQ PRN (11:44)
--- NOTE | 2017-01-07 12:41 | NUR ---
pts blood glucose at 163 after exercise. given 3 units insulin. blood pressure on . given bp meds. pt alert and oriented x 3. no signs of acute distress.
--- NOTE | 2017-01-07 14:58 | NUR ---
IDT MEETING 01/07/17
[2017-01-07] MEDS: ATORVASTATIN 40 MG TABLET PO SCH (21:15)
--- NOTE | 2017-01-07 21:15 | NUR ---
vital signs and blood sugar remained within normal limits within shift. didnt give insulin HS but gave gliptizide at night to prevent excessive drop in blood sugar. bp remained normal within shift. reported to be discharged on thursday. no signs of acute distress within shift.
[2017-01-07 21:16] VITALS: BP 127/60
[2017-01-07] MEDS: GABAPENTIN 300 MG CAPSULE PO SCH (21:16)
[2017-01-07] MEDS: INSULIN DETEMIR 300 UNIT/3 ML CARTRIDGE SQ SCH (21:18)
--- NOTE | 2017-01-07 21:20 | NUR ---
Blood Sugar 173 but patient refused to get coverage on sliding scale, explained importance of glucose control but she still refused
[2017-01-08] MEDS: BLOOD SUGAR DIAGNOSTIC 1 EACH STRIP VI SCH ×4 (06:19→20:53)
[2017-01-08] MEDS: PANTOPRAZOLE SODIUM 40 MG TABLET.DR PO SCH (06:20)
[2017-01-08] MEDS: hydrALAZINE HCL 25 MG TABLET PO SCH ×3 (06:21→21:55)
--- NOTE | 2017-01-08 06:22 | NUR ---
Patient alert and oriented and verbally able to let needs known. Denies and pain or discomfort throughout the night. Did have a hard time going to sleep but medication was given with relief. Didn't require O2 at night, no signs of SOB or respiratory distress and pulse O2 >92%. Patient does have call light within reach, will continue to monitor.
--- NOTE | 2017-01-08 07:09 | NUR ---
Patient received from night shift manager, resting comfortably in bed. No signs of acute distress noted, respirations even and unlabored on RA. Skin clean, dry, and intact. No other needs noted at this time. Safety precautions maintained. Call light within reach.
[2017-01-08 08:00] VITALS: BP 130/64
[2017-01-08] MEDS: glipiZIDE 10 MG TABLET PO SCH ×2 (09:10→16:16)
[2017-01-08] MEDS: CARVEDILOL 25 MG TABLET PO SCH ×2 (09:11→17:45)
[2017-01-08] MEDS: MAGNESIUM OXIDE 400 MG TABLET PO SCH ×2 (09:11→17:45)
[2017-01-08] MEDS: DILTIAZEM HCL CD 120 MG CAP.SR.24H PO SCH (09:11)
[2017-01-08] MEDS: APIXABAN 5 MG TABLET PO SCH ×2 (11:28→17:45)
[2017-01-08] MEDS: INSULIN REGULAR, HUMAN 300 UNIT/3 ML VIAL SQ PRN (12:11)
[2017-01-08] MEDS: VENLAFAXINE XR 75 MG CAP.SR.24H PO SCH (13:47)
[2017-01-08 20:33] VITALS: BP 108/51
[2017-01-08] MEDS: GABAPENTIN 300 MG CAPSULE PO SCH (20:53)
[2017-01-08] MEDS: ATORVASTATIN 40 MG TABLET PO SCH (20:53)
[2017-01-08] MEDS: INSULIN DETEMIR 300 UNIT/3 ML CARTRIDGE SQ SCH (20:55)
--- NOTE | 2017-01-08 21:57 | NUR ---
Hydralazine not given patients b/p 108/51 HR 53. Also patient refused sliding scale coverage even though blood sugar was 187. Patient is alert and oriented and verbally able to let needs known.
[2017-01-08] MEDS: diphenhydrAMINE 50 MG CAPSULE PO PRN (22:11)
[2017-01-09] MEDS: BLOOD SUGAR DIAGNOSTIC 1 EACH STRIP VI SCH ×2 (06:30→12:15)
[2017-01-09] MEDS: PANTOPRAZOLE SODIUM 40 MG TABLET.DR PO SCH (06:30)
[2017-01-09] MEDS: hydrALAZINE HCL 25 MG TABLET PO SCH (06:31)
--- NOTE | 2017-01-09 06:32 | NUR ---
Patient alert and oriented and verbally able to let needs known, slept well throughout the night after the administration of benadryl. Had no c/o pain or discomfort. No signs of respiratory distress. Pulse O2 >92% throughout the night. Patient has call light within reach, all needs attended
[2017-01-09 08:01] VITALS: BP 111/45
[2017-01-09 08:20] LABS: BASOPHILS % (AUTO) 0.5 % (0.0-2.0); EOSINOPHILS # (AUTO) 0.4 K/uL (0.0-0.7); EOSINOPHILS % (AUTO) 5.1 % (0.0-7.0); HEMATOCRIT 32.5 % (37-47); HEMOGLOBIN 10.6 G/DL (12.0-16.0); LYMPHOCYTES # (AUTO) 1.6 K/UL (0.8-4.8); LYMPHOCYTES % (AUTO) 18.6 % (20.5-51.5); MEAN CORPUSCULAR HEMOGLOBIN 27.6 UUG (27.0-31.0); MEAN CORPUSCULAR HGB CONC 33 g/dL (32.0-37.0); MEAN CORPUSCULAR VOLUME 84.5 FL (81.0-99.0); MONOCYTES # (AUTO) 0.6 K/UL (0.1-1.30); MONOCYTES % (AUTO) 6.8 % (0.0-11.0); PLATELET COUNT (AUTO) 262 K/UL (150-450); RED BLOOD CELL COUNT(AUTO) 3.85 MIL/UL (4.2-5.4); WHITE BLOOD COUNT (AUTO) 8.6 K/UL (4.0-11.2)
[2017-01-09 08:36] LABS: BILIRUBIN,TOTAL 0.4 mg/dL (0.2-1.0); CREATININE 1.4 mg/dL (0.6-1.3); PHOSPHOROUS 4.2 mg/dL (2.5-4.9); POTASSIUM 4.9 mmol/L (3.5-5.1); TOTAL PROTEIN, SERUM 6.7 g/dL (6.4-8.2)
[2017-01-09] MEDS: DILTIAZEM HCL CD 120 MG CAP.SR.24H PO SCH (08:49)
[2017-01-09] MEDS: VENLAFAXINE XR 75 MG CAP.SR.24H PO SCH (08:49)
[2017-01-09 08:50] VITALS: BP 111/45
[2017-01-09] MEDS: MAGNESIUM OXIDE 400 MG TABLET PO SCH (08:50)
[2017-01-09] MEDS: APIXABAN 5 MG TABLET PO SCH (08:50)
[2017-01-09] MEDS: CARVEDILOL 25 MG TABLET PO SCH (08:50)
[2017-01-09] MEDS: glipiZIDE 10 MG TABLET PO SCH (08:50)
[2017-01-09] MEDS ORDERED: INSU100I19 SQ (10:54)
[2017-01-09] MEDS: INSULIN REGULAR, HUMAN 300 UNIT/3 ML VIAL SQ PRN (12:18)
--- NOTE | 2017-01-09 13:00 | NUR ---
Patient discharge order received from Dr. Kingston, notified house worker and caser up. Patient made aware, verbalizes understanding of discharge order for today. VS WNL, all belongings verified with patient. No signs of acute distress noted, respirations even and unlabored. Skin clean, dry, and intact, no verbalized needs at this time. Patient dressed with regular clothing, name band removed. Patient escorted with staff via wheelchair to lobby, to be picked up by [employer]. Received acceptance from caser up for patient to call an [employer] to go home. All needs met. No incidences at this time. Medication reconciliation done by Sb Zambrano NP.
== END 2017-01-09 13:00 | disposition home health service (06) | DRG 291 ==
PROVIDERS: ADMIT Physical Medicine & Rehabilitation Pain Medicine; ATTEND Physical Medicine & Rehabilitation Pain Medicine
DX: I13.0 Hypertensive heart and chronic kidney disease with heart failure and stage 1 through stage 4 chronic kidney disease, or unspecified chronic kidney disease (principal); N17.0 Acute kidney failure with tubular necrosis; I50.33 Acute on chronic diastolic (congestive) heart failure; D68.59 Other primary thrombophilia; N39.0 Urinary tract infection, site not specified; N18.9 Chronic kidney disease, unspecified; I27.2 Other secondary pulmonary hypertension; Z87.440 Personal history of urinary (tract) infections; R94.31 Abnormal electrocardiogram [ECG] [EKG]; I44.7 Left bundle-branch block, unspecified; I48.2 Chronic atrial fibrillation; E78.5 Hyperlipidemia, unspecified; E03.9 Hypothyroidism, unspecified; Z79.4 Long term (current) use of insulin; E66.01 Morbid (severe) obesity due to excess calories; Z79.01 Long term (current) use of anticoagulants; K21.9 Gastro-esophageal reflux disease without esophagitis; Z68.39 Body mass index [BMI] 39.0-39.9, adult; D50.9 Iron deficiency anemia, unspecified; E11.65 Type 2 diabetes mellitus with hyperglycemia; E87.5 Hyperkalemia
CPT/HCPCS: 36415; 71010; 82306; 83550; 83735; 84100; 84443; 85025; 97110; 97112; 97116; 97161; 97165; 97530; 97535; A4663; J1815; Q0163